=== PATIENT | male | born 2000 | race Caucasian/White ===

== ENCOUNTER 2020-04-19 12:32 | Emergency (ER) | payer MEDICAID, SELFPAY ==
--- NOTE | ~2020-04-19 | XR_ITS ---
XR chest 1V portable DATE: 04/21/2020 19:42 INDICATION: Fever TECHNIQUE: Portable upright AP chest on 04/2020 at 1938 hours COMPARISON: None FINDINGS: Thoracic scoliosis. Normal heart size. No hilar or mediastinal enlargement. No pulmonary infiltrate or consolidation, pleural effusion or pulmonary vascular congestion or pneumo thorax. IMPRESSION: No active cardiopulmonary disease Reviewed, dictated and finalized at location A.
[2020-04-19 12:32] VITALS: BP 135/87; PULSE 102; RESP 14; TEMP 37.3; O2SAT 95
[2020-04-19 13:20] VITALS: BP 139/82; PULSE 95; RESP 16; O2SAT 97
[2020-04-19 13:22] LABS: Basophils Absolute Auto 0.1 K/mm3 (0.0-0.1); Basophils Percent Auto 0.8 % (0.2-1.2); Eosinophils Absolute Auto 0.1 K/mm3 (0-0.3); Eosinophils Percent Auto 1.5 % (0-4.4); Hematocrit 43.2 % (42.0-52.0); Hemoglobin 14.5 g/dL (14.0-18.0); Immature Granulocyte Absolute 0.01 K/mm3 (0.00-0.031); Immature Granulocyte Percent A 0.2 % (0-0.5); Lymphocytes Absolute Auto 3.39 K/mm3 (0.9-3.2); Lymphocytes Percent Auto 57.5 % (18.3-44.2); Mean Corpuscular HGB Conc 33.6 g/dl (32-36); Mean Corpuscular Hemoglobin 27.5 pg (26-34); Mean Platelet Volume 8.9 fl (7.4-10.4); Monocytes Absolute Auto 0.5 K/mm3 (0.1-0.6); Monocytes Percent Auto 7.8 % (2.6-8.5); Neutrophils Absolute Auto 1.9 K/mm3 (1.3-6.7); Neutrophils Percent Auto 32.2 % (45.5-73.1); Platelet Count Result 185 k/mm3 (150-375); Red Blood Count 5.27 M/mm3 (4.6-6.20); Red Cell Distribution Width 12.6 % (11.5-14.5); White Blood Count 5.9 K/mm3 (4.5-10.0)
[2020-04-19 13:34] LABS: Alanine Aminotransferase 49 U/L (4-50); Albumin Level 3.8 g/dL (3.5-5.1); Alkaline Phosphatase 76 U/L (38-126); Aspartate Amino Transferase 37 U/L (17-59); Bilirubin,Total 0.7 mg/dL (0.2-1.3); Blood Urea Nitrogen 9 mg/dL (9-20); Calcium 8.7 mg/dL (8.4-10.2); Carbon Dioxide 23 mmol/L (22-30); Chloride 108 mmol/L (98-107); Estimated CRCL calculation 177 ml/min; Estimated Glomerular Filt Rate > 60; Glucose 119 mg/dL (75-110); Potassium 3.7 mmol/L (3.4-5.0); Sodium 137 mmol/L (137-145)
[2020-04-19 13:53] LABS: Add Urine Microscopic? YES; Appearance Urine Clear (Clear); Bacteria Urine Trace /hpf; Bilirubin Urine Negative (Negative); Blood Urine Negative (Negative); Color Urine Amber (Yellow); Glucose Urine UA Negative (Negative); Ketones Urine Negative (Negative); Leukocyte Esterase Ur Negative LEU/UL (Negative); Mucus Urine Heavy /lpf; Nitrate Urine Negative (Negative); Protein Urine 1+ mg/dL (Negative); RBC Urine 0-2 /hpf (0-2); Specific Grav Ur 1.026 (1.001-1.035); WBC Urine 0-3 /hpf
[2020-04-19 14:09] LABS: Amphetamine Screen Urine Negative (Negative); Barbiturate Screen Urine Negative (Negative); Benzodiazepines Screen Urine Negative (Negative); Cannabinoid Screen Urine Negative (Negative); Cocaine Screen Urine Negative (Negative); Methadone Screen Urine Negative (Negative); Opiate Screen Urine Negative (Negative); Phencyclidine Screen Urine Negative (Negative)
--- NOTE | 2020-04-19 17:26 | ED.GENADULT ---
HPI - General Adult General Chief complaint: Weakness <EITAN Santizo Last Filed: 04/19/20 21:27> Stated complaint: weakness <EITAN Santizo Last Filed: 04/19/20 21:27> Time Seen by Provider: 04/19/20 12:58 <EITAN Santizo Last Filed: 04/19/20 21:27> Source: patient <EITAN Santizo Last Filed: 04/19/20 21:27> Mode of arrival: ambulatory <EITAN Santizo Last Filed: 04/19/20 21:27> Limitations: no limitations <EITAN Santizo Last Filed: 04/19/20 21:27> History of Present Illness HPI narrative: Patient is a 19-year-old male who presents to emergency department for evaluation of fatigue patient was ambulating when he contacted police toning that he felt fatigued patient had been driving when his car broke down patient was going to attempt to ambulate from [place] to [place]. Patient on arrival notes history of depression states yesterday thought about jumping off a bridge but ultimately felt like that was something he did not want to do and currently denies any suicidal or homicidal ideation but notes that yesterday he was struggling with his depression patient today denies any complaints or concerns aside from feeling fatigued and concern for dehydration. Patient notes that he was recently kicked out of his home by his parents <EITAN Santizo Last Filed: 04/19/20 21:27> Related Data Home medications: Home Medications Medication Instructions Recorded Confirmed No Home Medications 04/19/20 04/19/20 <EITAN Santizo Last Filed: 04/19/20 21:27> Allergies/adverse reactions: Allergies Allergy/AdvReac Type Severity Reaction Status Date / Time No Known Allergies Allergy Verified 04/19/20 12:39 <EITAN Santizo Last Filed: 04/19/20 21:27> Review of Systems Review of Systems: All systems reviewed & are unremarkable except as noted in HPI and below <EITAN Santizo Last Filed: 04/19/20 21:27> [facility] Past Medical History Medical History: Medical History (Updated 04/23/20 @ 00:00 by Background Daemon) Depression <EITAN Santizo Last Filed: 04/19/20 21:27> Exam Narrative: Exam Narrative: GENERAL: Well-appearing, well-nourished, and in no acute distress. HEAD: Normocephalic, atraumatic. EYES: PERRLA and EOMI. ENT: Nares clear, no rhinorrhea or epistaxis. Mucous membranes moist. Oropharynx without tonsillar hypertrophy exudate or other lesions. NECK: Supple. No adenopathy or masses. CHEST: Clear to auscultation. No respiratory distress. No wheezes rales or rhonchi HEART: Regular rate and rhythm. No murmur heard. Normal peripheral pulses. ABDOMEN: Soft, nontender, nondistended EXTREMITIES: Normal range of motion. No edema. SKIN: Warm, dry, no rash. NEURO: No focal deficits. Alert and oriented x3. Cranial nerves II through XII grossly intact PSYCH: Normal mood and affect. <EITAN Santizo Last Filed: 04/19/20 21:27> Course Course Emergency Course: Patient has remained stable in the emergency department no distress resting comfortably crisis evaluated the patient he has opted to be placed voluntarily <EITAN Santizo Last Filed: 04/19/20 21:27> 04/21/20 1915 care turned over myself at shift change. Patient seen and evaluated by myself. Currently resting in bed. I did note the patient's earlier fever. He states that the forehead thermometer always reads high and recheck of oral temperature is normal. He denies any symptoms. He denies any rhinorrhea sore throat cough or any other symptoms. I reviewed lab work which was within normal limits I will add a chest x-ray for thoroughness of evaluation prior to psychiatric placement 04/22/20 0700 care turned back over to Dr. Enciso at shift change awaiting psychiatric placement. Patient is remained asymptomatic throughout the night <Ankit Zapata DO - Last Filed: 0
[2020-04-19 19:08] LABS: Ethanol < 10 mg/dL (<10)
--- NOTE | 2020-04-19 21:00 | PC.NURSE ---
[facility] called back-stated they had no beds at this time, will possibly have some discharges in the AM and to recheck for possible available bed
[2020-04-19 22:03] VITALS: BP 128/76; PULSE 89; RESP 16; TEMP 38.1; O2SAT 99
--- NOTE | 2020-04-19 22:15 | PC.NURSE ---
Spoke with TANIA from [facility]-patient admission Declined
[2020-04-20 00:20] VITALS: BP 118/72; PULSE 81; RESP 16; TEMP 37.2; O2SAT 98
--- NOTE | 2020-04-20 00:25 | PC.NURSE ---
Hx and paperwork sent by fax to [facility] after speaking with them for evaluation of patient placement
--- NOTE | 2020-04-20 02:19 | PC.NURSE ---
[facility] will not accept pt. stating his stressors are due to homelessness and he feels he can be treated with a lesser level of care
--- NOTE | 2020-04-20 05:41 | PC.NURSE ---
7.2 at 2009 [place] [employer] officer picked up patient's hatchet, hunting knife and switchblade.
[2020-04-20 07:50] VITALS: BP 116/66; PULSE 72; RESP 18; TEMP 37.2; O2SAT 100
--- NOTE | 2020-04-20 07:52 | PC.NURSE ---
This RN into pts room to do vitals and introduce myself. Pt ws compliant when asked if I could take vitals. When this RN asked pt if he was still having thoughts of harming himself of others he stated it comes and it goes . Informed pt that we are still trying to get placement for him and will continue to do this today. This Rn ordered a breakfast tray for pt.
--- NOTE | 2020-04-20 07:57 | PC.NURSE ---
Sitter still at pts bedside
--- NOTE | 2020-04-20 08:12 | PC.NURSE ---
Tray taken to pt.
--- NOTE | 2020-04-20 09:05 | PC.NURSE ---
Keira from [facility] called and inquired on how things were going. Keira also states that she is going to call around today to see if there are any open beds anywhere. States she will call back later and check up.
--- NOTE | 2020-04-20 12:57 | PC.NURSE ---
Pt called out and wanted to change underwear, asked charged nurse and she stated that was ok.
--- NOTE | 2020-04-20 13:25 | PC.NURSE ---
Pt received lunch tray, sitter still at beside.
[2020-04-20] MEDS: ACETAMINOPHEN 500 MG TABLET 1000 MG PO (14:50)
--- NOTE | 2020-04-20 14:51 | PC.NURSE ---
Pt states he has a headache and requested pain medication. Informed of this and he ordered Tylenol
--- NOTE | 2020-04-20 16:36 | PC.NURSE ---
Dinner tray was ordered for pt. Sitter is still at bedside.
--- NOTE | 2020-04-20 17:55 | PC.NURSE ---
Pt sitting on bed. Sitter is at bedside
--- NOTE | 2020-04-20 18:41 | PC.NURSE ---
Karl from [facility] called and stated that they were still looking for placement. Informed Karl that the form for [facility] expires at 1940 ( per charge nurse), she states that she will call someone and have them come out to refill out form.
--- NOTE | 2020-04-20 19:30 | PC.NURSE ---
pt in room,sitter at bedside calm and cooperative
--- NOTE | 2020-04-20 20:39 | PC.NURSE ---
seen by [facility] no beds in local area. info faxed to [facility] and [facility] will see pt again tomorrow if needed to reassess
--- NOTE | 2020-04-20 20:40 | PC.NURSE ---
Nadia with [facility] in [place], [place] called. They have no male beds available. Informed nurse.
--- NOTE | 2020-04-20 21:35 | PC.NURSE ---
pt in no distress, calm and cooperative
--- NOTE | 2020-04-20 22:30 | PC.NURSE ---
1:1 with the pt pt remains suicidal, no plan thoughts and plans appear to be situational hopes for housing and job placement
[2020-04-21] VITALS (7 sets, daily range): BP systolic 112–127; BP diastolic 71–77; PULSE 77–89; RESP 12–99; TEMP 36.8–38.1; O2SAT 98–99
--- NOTE | 2020-04-21 03:08 | PC.NURSE ---
Assumed care of pt at this time. Report from [facility]. Pt. resting on stretcher. Rise and fall of chest noted. skin color pink and normal. pt does not appear to be in and distress.
--- NOTE | 2020-04-21 07:21 | PC.NURSE ---
Assumed care. Sleeping on cart. Sitter at bedside.
[2020-04-21 12:27] LABS: Basophils Percent Auto 0.8 % (0.2-1.2); Eosinophils Absolute Auto 0.2 K/mm3 (0-0.3); Eosinophils Percent Auto 3.3 % (0-4.4); Hemoglobin 15.1 g/dL (14.0-18.0); Immature Granulocyte Absolute 0.01 K/mm3 (0.00-0.031); Immature Granulocyte Percent A 0.2 % (0-0.5); Lymphocytes Absolute Auto 3.19 K/mm3 (0.9-3.2); Lymphocytes Percent Auto 61.5 % (18.3-44.2); Mean Corpuscular HGB Conc 33.6 g/dl (32-36); Mean Corpuscular Hemoglobin 28.3 pg (26-34); Mean Corpuscular Volume 84.3 fl (80-100); Monocytes Absolute Auto 0.4 K/mm3 (0.1-0.6); Monocytes Percent Auto 7.5 % (2.6-8.5); Neutrophils Absolute Auto 1.4 K/mm3 (1.3-6.7); Neutrophils Percent Auto 26.7 % (45.5-73.1); Platelet Count Result 181 k/mm3 (150-375); Red Blood Count 5.34 M/mm3 (4.6-6.20); Red Cell Distribution Width 13.1 % (11.5-14.5); White Blood Count 5.2 K/mm3 (4.5-10.0)
[2020-04-21 12:41] LABS: Blood Urea Nitrogen 8 mg/dL (9-20); Calcium 9.1 mg/dL (8.4-10.2); Carbon Dioxide 30 mmol/L (22-30); Chloride 104 mmol/L (98-107); Estimated CRCL calculation 177 ml/min; Estimated Glomerular Filt Rate > 60; Glucose 95 mg/dL (75-110); Sodium 138 mmol/L (137-145)
[2020-04-21 12:43] LABS: Potassium 4.4 mmol/L (3.4-5.0)
--- NOTE | 2020-04-21 12:54 | PC.NURSE ---
message left at [facility] in regards to bed placement
--- NOTE | 2020-04-21 13:43 | PC.NURSE ---
spoke with generator worker from [facility].they continue to seek placement for patient but no beds at this time
--- NOTE | 2020-04-21 15:30 | PC.NURSE ---
rquested paperwork faxed to [facility] in [facility] and to [facility] in [facility]
--- NOTE | 2020-04-21 16:13 | PC.NURSE ---
Call received from Abdias at [facility]. Requesting face sheet to be faxed to [phone]. Abdias also states that facilities policy since he is self pay is for a $4000 down payment for the stay placed on an open credit card.
--- NOTE | 2020-04-21 16:37 | PC.NURSE ---
requested paperwork faxed to [facility] in [facility]
[2020-04-21] MEDS: MELATONIN 3 MG TABLET PO (21:54)
--- NOTE | 2020-04-21 23:13 | PC.NURSE ---
Assumed care of pt at this time. Report from [facility]
[2020-04-22 06:00] VITALS: BP 119/73; PULSE 75; RESP 16; O2SAT 99
--- NOTE | 2020-04-22 07:27 | PC.NURSE ---
RN called crisis for 24 hour pt re-evaluation. They stated they would be sending someone out.
[2020-04-22 09:33] VITALS: BP 121/78; PULSE 78; RESP 18; O2SAT 99
[2020-04-23 20:02] LABS: SARS-CoV-2 RNA PCR Negative
== END 2020-04-22 09:34 | disposition home or self-care (01) ==
PROVIDERS: Emergency Medicine Emergency Medical Services; Emergency Provider Emergency Medicine
DX: F32.9 Major depressive disorder, single episode, unspecified (principal); Z20.828 Contact with and (suspected) exposure to other viral communicable diseases
CPT/HCPCS: 36415; 71045; 80048; 80053; 80307; 81001; 84443; 85025; 87635; 99284; A9270; C9803; U0003